=== PATIENT | male | born 1995 | race Caucasian/White ===

== ENCOUNTER 2017-11-06 23:22 | Emergency (ER) | payer BC ==
--- NOTE | 2017-11-06 23:42 | ED ---
Psych HPI - General Source: patient, family, RN notes reviewed, old records reviewed Mode of arrival: ambulatory - History of Present Illness MD Complaint: suicidal ideation -: unknown Associated Psychiatric Symptoms: depression, suicidal ideation, racing thoughts Quality: constant, changing over time Improves With: none Worsens With: none Context: recent alcohol abuse, recent drug abuse Treatments Prior to Arrival: none If Self Harm: admits thoughts of self harm <Herminio Ocampo - Last Filed: 11/06/17 23:33> <Herminio Roberson - Last Filed: 11/07/17 10:32> - General Chief Complaint: Psychiatric Symptoms Stated Complaint: SUICIDAL,ETOH Time Seen by Provider: 11/06/17 23:29 - History of Present Illness Initial Comments: This is a 22-year-old male the ER for evaluation. This patient presents ER for evaluation regards to psychiatric illness, (Herminio Ocampo) - Related Data Home Medications Medication Instructions Recorded Confirmed No Known Home Medications 08/25/15 11/06/17 Allergies Allergy/AdvReac Type Severity Reaction Status Date / Time No Known Allergies Allergy Verified 11/07/17 07:47 Review of Systems ROS Other: All systems not noted in ROS Statement are negative. <Herminio Ocampo - Last Filed: 11/06/17 23:33> ROS Other: All systems not noted in ROS Statement are negative. <Herminio Roberson - Last Filed: 11/07/17 10:32> ROS Statement: Those systems with pertinent positive or pertinent negative responses have been documented in the HPI. Past Medical History Past Medical History: Unable to Obtain Additional Past Medical History / Comment(s): MRSA History of Any Multi-Drug Resistant Organisms: MRSA Date of last positivie culture/infection: July 2013 MDRO Source:: left arm Past Surgical History: Appendectomy Past Anesthesia/Blood Transfusion Reactions: No Reported Reaction Past Psychological History: No Psychological Hx Reported Smoking Status: Current every day smoker Past Alcohol Use History: Occasional Past Drug Use History: Marijuana <Herminio Ocampo - Last Filed: 11/06/17 23:33> General Exam Limitations: no limitations General appearance: alert, in no apparent distress Head exam: Present: atraumatic, normocephalic, normal inspection Eye exam: Present: normal appearance, PERRL, EOMI. Absent: scleral icterus, conjunctival injection, periorbital swelling ENT exam: Present: normal exam, mucous membranes moist Neck exam: Present: normal inspection. Absent: tenderness, meningismus, lymphadenopathy Respiratory exam: Present: normal lung sounds bilaterally. Absent: respiratory distress, wheezes, rales, rhonchi, stridor Cardiovascular Exam: Present: normal rhythm, tachycardia, normal heart sounds. Absent: systolic murmur, diastolic murmur, rubs, gallop, clicks GI/Abdominal exam: Present: soft, normal bowel sounds. Absent: distended, tenderness, guarding, rebound, rigid Extremities exam: Present: normal inspection, full ROM, normal capillary refill. Absent: tenderness, pedal edema, joint swelling, calf tenderness Back exam: Present: normal inspection Neurological exam: Present: alert, oriented X3, CN II-XII intact Psychiatric exam: Present: normal affect, normal mood Skin exam: Present: warm, dry, intact, normal color. Absent: rash <Herminio Ocampo - Last Filed: 11/06/17 23:33> Course <Herminio Ocampo - Last Filed: 11/06/17 23:33> <Herminio Roberson - Last Filed: 11/07/17 10:32> Vital Signs 11/06/17 23:25 Temperature 98.4 F Pulse Rate 120 H Respiratory 20 Rate Blood Pressure 125/75 O2 Sat by Pulse 98 Oximetry - Reevaluation(s) Reevaluation #1: 11/06/17 23:41 Patient's medical record is reviewed (Herminio Ocampo) Reevaluation #2: 11/06/17 23:41 Patient is medically clear for psychiatric illness (Herminio Ocampo) - Lab Data Lab Results 11/06/17 Range/Units 23:29 Urine Opiates Screen Not Detected (NotDetected) Ur Oxycodone Screen Not Detected (NotDetected) Urine Methadone Screen Not Detected (NotDetected) Ur Propoxyphene Screen Not Detected (NotDetected) Ur Barbiturates Screen Not Detected (NotDetected) U Tricyclic Antidepress Not Detected (NotDetected) Ur Phencyclidine Scrn Not Detected (NotDetected) Ur Amphetamines Screen Not Detected (NotDetected) U Methamphetamines Scrn Not Detected (NotDetected) U Benzodiazepines Scrn Not Detected (NotDetected) Urine Cocaine Screen Not Detected (NotDetected) U Marijuana (THC) Screen Detected H (NotDetected) Disposition <Herminio Ocampo - Last Filed: 11/06/17 23:33> Is patient prescribed a controlled substance at d/c from ED?: No Time of Disposition: 10:31 <Herminio Roberson - Last Filed: 11/07/17 10:32> Clinical Impression: Situational depression, Alcohol abuse Disposition: HOME SELF-CARE Condition: Good Instructions: Depression (ED), Abuse of Alcohol (ED) Referrals: None,Stated [Primary Care Provider] - 1-2 days
[2017-11-07 00:09] LABS: Amphetamine Screen,Urine Not Detected (NotDetected); Barbiturate Screen,Urine Not Detected (NotDetected); Benzodiazepines Screen,Urine Not Detected (NotDetected); Cocaine Screen,Urine Not Detected (NotDetected); Methadone Screen, Urine Not Detected (NotDetected); Opiate Screen,Urine Not Detected (NotDetected); Oxycodone Screen, Urine Not Detected (NotDetected); Phencyclidine Screen,Urine Not Detected (NotDetected); Tricyclic Antidepressant,Urine Not Detected (NotDetected); Urn Cannabinoid Scrn Detected (NotDetected)
[2017-11-07 10:43] VITALS: BP 133/79; PULSE 97; RESP 18; TEMP 98
== END 2017-11-07 10:36 | disposition home or self-care (01) ==
LOC: EC 23:22
DX: F43.21 Adjustment disorder with depressed mood (principal); F10.10 Alcohol abuse, uncomplicated; R45.851 Suicidal ideations; F17.200 Nicotine dependence, unspecified, uncomplicated; Z86.14 Personal history of Methicillin resistant Staphylococcus aureus infection
CPT/HCPCS: 80306; 82075; 99285